=== PATIENT | male | born 1960 | race Caucasian/White ===

== ENCOUNTER → 2017-02-19 | Outpatient (CLI) | payer BC ==
[~2017-02-19] MED LIST: CHOL1000 PO; FLV1 PO; METH2.5T PO; NAPR-1169 PO; PANT40TA PO; SERT25TA PO
--- NOTE | 2017-02-19 10:14 | DIAGNOSTIC IMAGING REPORT ---
CT SCAN OF THE CHEST WITHOUT IV CONTRAST CLINICAL HISTORY: Follow-up pulmonary nodule. COMPARISON STUDY: Chest CT dated 09/04/2016. TECHNIQUE: CT scan of the thorax was performed from the thoracic inlet to the upper abdomen. Images are reviewed in the axial, sagittal, and coronal planes. IV contrast was not administered for this examination as per the referring clinician. CT DOSE: 411.54 mGy.cm FINDINGS: Thyroid: Imaged portions of the thyroid gland are normal in size and attenuation. Thoracic aorta: The thoracic aorta is normal in caliber and demonstrates standard 3-vessel arch anatomy. Heart: The heart is normal in size and without pericardial effusion. Lungs and pleural spaces: Mild emphysema is suspected. The trachea and central airways are clear. There are numerous (greater than 10) pulmonary cysts. The largest is present in the left lower lobe and measures 2.0 cm. No airspace consolidation or pleural effusion is seen. There is a 2.2 x 1.6 cm groundglass lesion in the left upper lobe seen on image #161, which is unchanged from 09/04/2016. An additional 11 mm nodule in the left upper lobe on image #169, a 6 mm groundglass nodule at the left apex seen on image #61, as well as a 9 mm irregular groundglass nodule in the right upper lobe on image #118 are also unchanged. Mediastinum: There is no mediastinal lymphadenopathy. Chante: Not well assessed without IV contrast. Axillae: There is no axillary lymphadenopathy. Upper abdomen: Cholecystectomy clips are noted. A 1.7 cm cyst arises from the upper pole of left kidney. Scattered diverticula are noted in the partially imaged left colon. Skeletal structures: No lytic or blastic bony lesions are seen. IMPRESSION: 1. Mild emphysema is suspected and there are numerous small pulmonary cysts. 2. There is unchanged appearance of a 2.2 cm groundglass lesion in the left upper lobe as compared to 09/04/2016. This should be considered low-grade neoplasm until proven otherwise and surgical consultation is advised. 3. There are 3 additional indeterminant nodules present in the upper lobes bilaterally as detailed above. These nodules should be followed as per the Fleischner criteria. See below. 4. There is no airspace consolidation or pleural effusion. 5. No mediastinal lymphadenopathy is seen. Please refer to below summary of Fleischner criteria recommendations for follow-up of incidental CT nodules (Laura James, Guidelines for management of small pulmonary nodules detected on CT scans: A statement from the Fleischner Society, Radiology 237: [phone].) SOLID NODULES Solitary nodule size: <6 mm * low risk patients: no follow-up needed * high risk patients: optional CT at 12 months Solitary nodule size: 6-8 mm * low risk patients: follow-up at 6-12 months, then consider further follow-up at 18-24 months * high risk patients: initial follow-up CT at 6-12 months and then at 18-24 months if no change Solitary nodule size: >8 mm * either low or high risk patients - consider follow-up CT at 3 months, and/or CT-PET, and/or biopsy Multiple nodules size: <6 mm * low risk patients: no routine follow-up * high risk patients: optional CT at 12 months Multiple nodules size: 6-8 mm * low risk patients: follow-up at 3-6 months, then consider further follow-up at 18-24 months * high risk patients: follow-up at 3-6 months, then at 18-24 months if no change Multiple nodules size: >8 mm * low risk patients: follow-up at 3-6 months, then consider further follow-up at 18-24 months * high risk patients: follow-up at 3-6 months, then at 18-24 months if no change Note: newly detected indeterminate nodule in persons 35 years of age or older. * low risk patients: minimal or absent history of smoking and/or other known risk factors * high risk patients: history of smoking or of other known risk factors (e.g. first degree relative with lung cancer, or exposure to asbestos, radon, uranium) * if a nodule up to 8 mm is partly solid or is ground glass further follow-up is required after 24 months to exclude possible slow growing adenocarcinoma (DARIEN) SUBSOLID NODULES Solitary pure ground-glass nodule * nodule size <6 mm - no CT follow-up required * nodule size >=6 mm - follow-up CT at 6-12 months, then every 2 years until 5 years Solitary part-solid nodule * nodule size <6 mm - no CT follow-up required * nodule size >=6 mm - follow-up CT at 3-6 months. If unchanged, and solid component remains <6 mm, then annual follow-up for 5 years Multiple subsolid nodules * nodule size <6 mm - follow-up CT at 3-6 months, consider further follow-up at 2 and 4 years if stable * nodule size >=6 mm - follow-up CT at 3-6 months, subsequent management based on the most suspicious nodule(s) Electronically signed by: Daren Escoto M.D. 02/19/2017 10:12 AM Dictated Date/Time: 02/19/2017 10:03 AM
== END | disposition home or self-care (01) ==
LOC: C.CTS 09:18
PROVIDERS: ATTEND Internal Medicine Pulmonary Disease
DX: R91.1 Solitary pulmonary nodule (principal); R91.8 Other nonspecific abnormal finding of lung field

== ENCOUNTER → 2017-03-09 | Outpatient (CLI) | payer BC ==
[2017-03-09 12:24] LABS: BASO % 0.3 %; BASO ABS # 0.02 K/uL (0-0.2); COMPLETE YES; EOS % 2.5 %; HEMATOCRIT 41.1 % (42-52); IG% 0.3 %; LYMPH % 33.1 %; LYMPH ABS # 2.35 K/uL (1.2-3.4); MEAN CELL VOLUME 87.8 fL (80-100); MEAN CORPUSCULAR HEMOGLOBIN 29.3 pg (25-34); MEAN CORPUSCULAR HGB CONC 33.3 g/dl (32-36); MEAN PLATELET VOLUME 9.6 fL (7.4-10.4); MONO % 9.1 %; NEUT % 54.7 %; PLATELET COUNT 236 K/uL (130-400); RED BLOOD COUNT 4.68 M/uL (4.7-6.1); WHITE BLOOD COUNT 7.11 K/uL (4.8-10.8)
[2017-03-09 12:38] LABS: ALT/SGPT 44 U/L (12-78)
[2017-03-09 12:42] LABS: ALKALINE PHOSPHATASE 73 U/L (45-117); AST/SGOT 24 U/L (15-37)
== END | disposition home or self-care (01) ==
LOC: C.LAB1850 09:38
PROVIDERS: ATTEND Internal Medicine Rheumatology
DX: M35.00 Sjogren syndrome, unspecified (principal); R76.8 Other specified abnormal immunological findings in serum; Z79.1 Long term (current) use of non-steroidal anti-inflammatories (NSAID); Z79.899 Other long term (current) drug therapy

== ENCOUNTER → 2017-04-07 | Day surgery (SDC) | payer BC ==
[2017-03-26 11:20] VITALS: BMI 27.0
--- NOTE | 2017-03-26 11:43 | PAT Medication Instructions ---
Service Date Mar 26, 2017. Current Home Medication List Cholecalciferol (Vitamin D3), 1 TAB PO QAM Folic Acid (Folic Acid), 1 TAB PO QAM Methotrexate (Methotrexate), 3 TABS PO thursday Naproxen (Naprosyn), 500 MG PO BID PRN for Pain Pantoprazole (Protonix), 40 MG PO QAM Sertraline (Zoloft), 25 MG PO HS Medication Instructions For Your Scheduled Surgery - Will be holding the week prior to surgery: Methotrexate (Methotrexate), 3 TABS PO thursday - Hold the following medications the morning of surgery: Cholecalciferol (Vitamin D3), 1 TAB PO QAM Folic Acid (Folic Acid), 1 TAB PO QAM Naproxen (Naprosyn), 500 MG PO BID PRN for Pain (otherwise okay to continue) - Take the following medications the morning of surgery with a sip of water OTHERWISE NOTHING TO EAT OR DRINK AFTER MIDNIGHT: Pantoprazole (Protonix), 40 MG PO QAM - Take the following medications as scheduled the night before surgery: Sertraline (Zoloft), 25 MG PO HS If you have any questions please call us at [phone] or [phone] or [phone]
[2017-03-26 12:21] LABS: BASO % 0.3 %; BASO ABS # 0.02 K/uL (0-0.2); COMPLETE YES; EOS % 1.6 %; HEMATOCRIT 43.3 % (42-52); IG% 0.3 %; LYMPH % 32.1 %; LYMPH ABS # 2.22 K/uL (1.2-3.4); MEAN CELL VOLUME 87.1 fL (80-100); MEAN CORPUSCULAR HEMOGLOBIN 28.2 pg (25-34); MEAN CORPUSCULAR HGB CONC 32.3 g/dl (32-36); MEAN PLATELET VOLUME 8.7 fL (7.4-10.4); MONO % 7.5 %; NEUT % 58.2 %; PLATELET COUNT 234 K/uL (130-400); RED BLOOD COUNT 4.97 M/uL (4.7-6.1); WHITE BLOOD COUNT 6.92 K/uL (4.8-10.8)
[2017-03-26 12:30] LABS: BUN/CREATININE RATIO 11.8 (10-20); CALCIUM 9.5 mg/dl (8.5-10.1); CREATININE 1.1 mg/dl (0.60-1.40); POTASSIUM 4.5 mmol/L (3.5-5.1)
[2017-03-26 12:35] LABS: PARTIAL THROMBOPLASTIN RATIO 1.1; PROTHROMBIN TIME (PATIENT) 10.4 SECONDS (9.0-12.0)
[~2017-04-07] VITALS: Ht 180.3 cm; Wt 87.5 kg
[~2017-04-07] MED LIST changes: +ATROPINE SULFATE 0.1 MG/ML 5ML SYR IV PRN; +CLINDAMYCIN PHOS 150 MG/ML 2 ML VIAL ONE; +DEXAMETHASONE SOD INJ 4 MG/ML VIAL ONE; +EpHEDrine SULFATE INJ 50 MG/ML AMP IV PRN; +FENTANYL CITRATE INJ 50 MCG/1 ML 2 ML VIAL IV PRN; +FENTANYL CITRATE INJ 50 MCG/1 ML 2 ML VIAL ONE; +GLYCOPYRROLATE INJ 0.2 MG/ML VIAL ONE; +LACTATED RINGER'S 1000ML 1,000 ML IV SCH; +LIDOCAINE HCL 2% 2 ML VIAL (20MG/ML) ONE; +MIDAZOLAM HCL 1 MG/ML 2ML VIAL ONE; +NEOSTIGMINE METHYLSULFATE 5 MG/5 ML SYR ONE; +NURSING VERBAL MED ORDER ONE; +ONDANSETRON INJ 2 MG/ML 2 ML VIAL IV PRN; +ONDANSETRON INJ 2 MG/ML 2 ML VIAL ONE; +PROMETHAZINE HCL INJ 12.5 MG in SODIUM CHLORIDE 0.9% 50ML 50 ML IV STA; +PROPOFOL IV EMULSION 10 MG/ML 20 ML VIAL IV ONE; +ROCURONIUM BROMIDE 10 MG/ML 5 ML VIAL ONE; +SCOPOLAMINE 1.5 MG TDSY TD ONE; +SUCCINYLCHOLINE CHLORIDE 20 MG/ML 10 ML VIAL IV ONE
[2017-04-07 10:06] VITALS: BP 152/89; PULSE 64; TEMP 36.6; O2SAT 99; Ht 180.3 cm; Wt 87.5 kg
[2017-04-07 15:05] VITALS: BP 135/79; PULSE 93; TEMP 37.1; O2SAT 94
--- NOTE | 2017-04-07 15:08 | Anesthesiology Progress Note ---
Anesthesia Post Op Note Date & Time Apr 07, 2017 at 14:57 Vital Signs Pain Intensity: 0 Vital Signs Past 12 Hours Date Time Temp Pulse Resp B/P (MAP) Pulse Ox O2 Delivery O2 Flow Rate FiO2 04/07/17 14:35 77 17 144/84 94 Room Air 04/07/17 14:25 79 12 148/88 95 Room Air 04/07/17 14:15 80 18 148/90 97 Room Air 04/07/17 14:05 75 20 149/94 97 Room Air 04/07/17 13:55 68 13 145/91 100 Oxymask 10 04/07/17 13:45 36.6 75 18 151/95 98 Oxymask 10 04/07/17 10:06 36.6 64 20 152/89 (110) 99 Room Air Notes Anesthetic Complications: The patient was induced and an igel #5 LMA was placed. Shortly after induction, Dr. Correa requested that we change to a # 8.5 ET tube and stated he saw gastric secretions in the bronchus intermedius, which he sucked out. We suctioned the patient and removed the LMA and intubated with the 8.5 ET tube and the patient's 02 saturations remained high throughout the case. Dr. Correa did not feel there was a significant aspiration but gave the patient a prophylactic dose of clindamycin. The patient's PACU stay was uneventful except for some nausea which was treated with phenergan 12.5 mg. He had been given zofran 8 mg and decadron 8 mg in addition to a scope patch previously.
[2017-04-07 15:35] VITALS: BP 124/76; PULSE 95; O2SAT 97
--- NOTE | 2017-04-07 15:51 | Discharge Instructions ---
Discharge Instructions Date of Service Apr 07, 2017. Admission Reason for Admission: Lung Nodule, Sjogren's Syndrome Discharge Discharge Diagnosis / Problem: Ground-glass nodule in the lingula Discharge Goals Goal(s): Diagnostic testing Activity Recommendations Activity Limitations: resume your previous activity . Instructions / Follow-Up Instructions / Follow-Up Follow-up with Dr. oCrrea and then Dr. Oneil of the Pulmonary Department Current Hospital Diet Patient's current hospital diet: Discharge Diet Recommended Diet: Regular Diet Procedures Procedures Performed: Flexible bronchoscopy, endobronchial ultrasound, electronavigational bronchoscopy, trans-tracheal/bronchial needle biopsy, trans-bronchial biopsy, bronchial lavage, intra-bronchial biopsy, cytology brushing Pending Studies Studies pending at discharge: no Medical Emergencies . Who to Call and When: Medical Emergencies: If at any time you feel your situation is an emergency, please call 911 immediately. . Non-Emergent Contact Non-Emergency issues call your: Environmental Technology Professor Call Non-Emergent contact if: temperature is above 101.5 . . "Provider Documentation" section prepared by Eugenio Correa. . VTE Core Measure Inpt VTE Proph given/why not?: Treatment not indicated
[2017-04-07 16:05] VITALS: BP 131/79; PULSE 94; TEMP 37.1; O2SAT 94
--- NOTE | 2017-04-07 17:42 | History and Physical ---
History & Physical Date Apr 07, 2017. Chief Complaint Ground Glass Nodule History of Present Illness The patient is a 56 year old male with complaints of GGO VEGA Patient is a 56-year-old male with a PmHx: of Sjogren's syndrome (MTX & Prednisone), GARRET and now GGO of the VEGA/Lingula. He has a cough chronically, notices some shortness of breath going up 1 flight of steps if he is carrying something but is able to run between 1 and 2 miles without too much difficulty. A CT scan of the chest done on February 19, 2017 demonstrated multiple thin walled cysts and a 2.2cm GGO in the VEGA. These findings are unchanged compared with a prior CT scan from 09/04/2016. The patient is doing well today with no fever, chills, productive cough, chest or pleurisy Past Medical/Surgical History 1. Abnormal SPEP 3. Epididymitis 4. Long-term use of immunosuppressant medication 5. Lung nodule 6. Nephrolithiasis 7. NSAID long-term use 8. Obstructive sleep apnea of adult 9. Pneumonitis 10. Sjogren's syndrome 11. Urinary symptom or sign 1. Appendectomy 2. Cholecystectomy Laparoscopic 3. Hernia Repair Additional History Hepatic Disease: No Endocrine Disorder: No Kidney Disease: No Hypertension: No Heart Disease: No Bleeding Tendencies: No Infectious Diseases: No Other: Sjogren syndrome Allergies Coded Allergies: Tamsulosin (Verified Allergy, Severe, DIFFICULTY BREATHING, 04/07/17) Home Medications Scheduled Cholecalciferol (Vitamin D3), 1 TAB PO QAM Folic Acid (Folic Acid), 1 TAB PO QAM Methotrexate (Methotrexate), 3 TABS PO thursday Pantoprazole (Protonix), 40 MG PO QAM Sertraline (Zoloft), 25 MG PO HS Scheduled PRN Naproxen (Naprosyn), 500 MG PO BID PRN for Pain Physical Examination Skin: warm/dry, no rash Eyes: normal inspection, EOMI, sclerae normal ENT: normal ENT inspection, pharynx normal Head: normocephalic, atraumatic Neck: supple, no adenopathy, trachea midline Respiratory/Chest: lungs clear, normal breath sounds, no respiratory distress Cardiovascular: regular rate, rhythm, no edema, no murmur Abdomen / GI: normal bowel sounds, non tender Back: normal inspection Extremities: normal inspection, normal range of motion Neurologic/Psych: no motor/sensory deficits, alert, normal reflexes, oriented x 3 Diagnosis VEGA GGO possible Lung CA ASA Classification: ASA Class II Plan of Treatment Flexible bronchoscopy with ENB, EBUS along with Tbbx, TTNA, TBNA, cytology brushing and BAL of the VEGA GGO
== END | disposition home or self-care (01) ==
LOC: C.ACU 09:27
PROVIDERS: ATTEND Internal Medicine Critical Care Medicine
DX: R91.1 Solitary pulmonary nodule (principal); J98.4 Other disorders of lung; M35.00 Sjogren syndrome, unspecified; G47.33 Obstructive sleep apnea (adult) (pediatric); Z90.49 Acquired absence of other specified parts of digestive tract; Z80.2 Family history of malignant neoplasm of other respiratory and intrathoracic organs; Z80.0 Family history of malignant neoplasm of digestive organs

== ENCOUNTER → 2017-04-07 | Outpatient (CLI) | payer BC ==
[~2017-04-07] MED LIST changes: -ATROPINE SULFATE 0.1 MG/ML 5ML SYR IV PRN; -CLINDAMYCIN PHOS 150 MG/ML 2 ML VIAL ONE; -DEXAMETHASONE SOD INJ 4 MG/ML VIAL ONE; -EpHEDrine SULFATE INJ 50 MG/ML AMP IV PRN; -FENTANYL CITRATE INJ 50 MCG/1 ML 2 ML VIAL IV PRN; -FENTANYL CITRATE INJ 50 MCG/1 ML 2 ML VIAL ONE; -GLYCOPYRROLATE INJ 0.2 MG/ML VIAL ONE; -LACTATED RINGER'S 1000ML 1,000 ML IV SCH; -LIDOCAINE HCL 2% 2 ML VIAL (20MG/ML) ONE; -MIDAZOLAM HCL 1 MG/ML 2ML VIAL ONE; -NEOSTIGMINE METHYLSULFATE 5 MG/5 ML SYR ONE; -NURSING VERBAL MED ORDER ONE; -ONDANSETRON INJ 2 MG/ML 2 ML VIAL IV PRN; -ONDANSETRON INJ 2 MG/ML 2 ML VIAL ONE; -PROMETHAZINE HCL INJ 12.5 MG in SODIUM CHLORIDE 0.9% 50ML 50 ML IV STA; -PROPOFOL IV EMULSION 10 MG/ML 20 ML VIAL IV ONE; -ROCURONIUM BROMIDE 10 MG/ML 5 ML VIAL ONE; -SCOPOLAMINE 1.5 MG TDSY TD ONE; -SUCCINYLCHOLINE CHLORIDE 20 MG/ML 10 ML VIAL IV ONE
--- NOTE | 2017-04-07 10:03 | DIAGNOSTIC IMAGING REPORT ---
ADDENDUM This study was a diagnostic CT of the chest without IV contrast. No intervention or needle placement by the interpreting radiologist was conducted and should be coded appropriately. Electronically signed by: Garett Pichardo M.D. 04/08/2017 1:06 PM Dictated Date/Time: 04/08/2017 1:05 PM ORIGINAL REPORT GUIDANCE NEEDLE PLACEMENT HISTORY: 56 years Male lung nodule with super-dimensional protocol for bronchoscopy guided needle biopsy COMPARISON: Chest CT 02/19/2017 and 09/04/2016 TECHNIQUE: Multiple axial CT images of the chest were obtained without IV contrast for evaluation of superior segment lingula groundglass opacity to plan for bronchoscopically guided needle biopsy. FINDINGS: Thyroid is homogeneous. No pathologic adenopathy of the chest. The heart appears normal in size. The thoracic aorta is normal in course and caliber. No pneumothorax or pleural effusion. There is mild centrilobular emphysematous changes again seen with scattered thin-walled pulmonary cyst. Subsegmental atelectasis involves the lung bases. 2.2 x 1.5 cm ovoid focal groundglass opacity of the superior segment lingula is again seen with central coursing air bronchograms, previously 2.1 x 1.5 cm on study dated 02/19/2017. 11 x 6 mm noncalcified pulmonary nodule of the superior segment lingula more anteriorly appears unchanged from 09/04/2016. No new pulmonary nodules are identified. The central airways are patent with mild endobronchial mucous noted. 3 mm pulmonary nodule of the apical posterior segment left upper lobe appears unchanged. 5 mm linear density of the apical segment right upper lobe appears unchanged suggesting area of scarring. Prior cholecystectomy. Exophytic slightly low attenuating 1.9 x 1.5 similar lesion of the superior pole left kidney is again seen which may reflect a cyst. Soft tissues are unremarkable. The bones appear intact. IMPRESSION: 1. Unchanged focal groundglass opacity of the superior segment lingula is again seen measuring up to 2.2 cm. 2. Additional scattered areas of pulmonary nodularity as above. 3. No acute cardiopulmonary process. Please refer to below summary of Fleischner criteria recommendations for follow-up of incidental CT nodules (H Jacob, Guidelines for management of small pulmonary nodules detected on CT scans: A statement from the Fleischner Society, Radiology 237: [phone].) SOLID NODULES Solitary nodule size: <6 mm * Low risk patients: no follow-up needed * high risk patients: optional CT at 12 months Solitary nodule size: 6-8 mm * Low risk patients: follow-up at 6-12 months, then consider further follow-up at 18-24 months * high risk patients: initial follow-up CT at 6-12 months and then at 18-24 months if no change Solitary nodule size: >8 mm * either low or high risk patients - consider follow-up CT at 3 months, and/or CT-PET, and/or biopsy Multiple nodules size: <6 mm * Low risk patients: no routine follow-up * high risk patients: optional CT at 12 months Multiple nodules size: 6-8 mm * Low risk patients: follow-up at 3-6 months, then consider further follow-up at 18-24 months * high risk patients: follow-up at 3-6 months, then at 18-24 months if no change Multiple nodules size: >8 mm * Low risk patients: follow-up at 3-6 months, then consider further follow-up at 18-24 months * high risk patients: follow-up at 3-6 months, then at 18-24 months if no change Note: newly detected indeterminate nodule in persons 35 years of age or older. * Low risk patients: minimal or absent history of smoking and/or other known risk factors * high risk patients: history of smoking or of other known risk factors (e.g. first degree relative with lung cancer, or exposure to asbestos, radon, uranium) * if a nodule up to 8 mm is partly solid or is ground glass further follow-up is required after 24 months to exclude possible slow growing adenocarcinoma (DARIEN) SUBSOLID NODULES Solitary pure ground-glass nodule * nodule size <6 mm - no CT follow-up required * nodule size >=6 mm - follow-up CT at 6-12 months, then every 2 years until 5 years Solitary part-solid nodule * nodule size <6 mm - no CT follow-up required * nodule size >=6 mm - follow-up CT at 3-6 months. If unchanged, and solid component remains <6 mm, then annual follow-up for 5 years Multiple subsolid nodules * nodule size <6 mm - follow-up CT at 3-6 months, consider further follow-up at 2 and 4 years if stable * nodule size >=6 mm - follow-up CT at 3-6 months, subsequent management based on the most suspicious nodule(s) The above report was generated using voice recognition software. It may contain grammatical, syntax or spelling errors. Electronically signed by: Garett Pichardo M.D. 04/07/2017 10:01 AM Dictated Date/Time: 04/07/2017 9:52 AM
--- NOTE | 2017-04-07 10:47 | History & Physical Bridge Note ---
H&P Re-Evaluation Bridge Note: I have examined the patient, reviewed the History & Physical and in the interval since the performance of the History & Physical I have noted the following changes of clinical significance: No changes noted
--- NOTE | 2017-04-07 10:47 | History and Physical ---
History & Physical Date Apr 07, 2017. Chief Complaint Ground Glass Nodule History of Present Illness The patient is a 56 year old male with complaints of GGO VEGA Patient is a 56-year-old male with a PmHx: of Sjogren's syndrome (MTX & Prednisone), GARRET and now GGO of the VEGA/Lingula. He has a cough chronically, notices some shortness of breath going up 1 flight of steps if he is carrying something but is able to run between 1 and 2 miles without too much difficulty. A CT scan of the chest done on February 19, 2017 demonstrated multiple thin walled cysts and a 2.2cm GGO in the VEGA. These findings are unchanged compared with a prior CT scan from 09/04/2016. The patient is doing well today with no fever, chills, productive cough, chest or pleurisy Past Medical/Surgical History 1. Abnormal SPEP 3. Epididymitis 4. Long-term use of immunosuppressant medication 5. Lung nodule 6. Nephrolithiasis 7. NSAID long-term use 8. Obstructive sleep apnea of adult 9. Pneumonitis 10. Sjogren's syndrome 11. Urinary symptom or sign 1. Appendectomy 2. Cholecystectomy Laparoscopic 3. Hernia Repair Allergies Coded Allergies: Tamsulosin (Verified Allergy, Severe, DIFFICULTY BREATHING, 04/07/17) Home Medications Scheduled Cholecalciferol (Vitamin D3), 1 TAB PO QAM Folic Acid (Folic Acid), 1 TAB PO QAM Methotrexate (Methotrexate), 3 TABS PO thursday Pantoprazole (Protonix), 40 MG PO QAM Sertraline (Zoloft), 25 MG PO HS Scheduled PRN Naproxen (Naprosyn), 500 MG PO BID PRN for Pain Physical Examination Skin: warm/dry, no rash Eyes: normal inspection, EOMI, sclerae normal ENT: normal ENT inspection, pharynx normal Head: normocephalic, atraumatic Neck: supple, no adenopathy, trachea midline Respiratory/Chest: lungs clear, normal breath sounds, no respiratory distress Cardiovascular: regular rate, rhythm, no edema, no murmur Abdomen / GI: normal bowel sounds, non tender Back: normal inspection Extremities: normal inspection, normal range of motion Neurologic/Psych: no motor/sensory deficits, alert, normal reflexes, oriented x 3 Diagnosis VEGA GGO possible Lung CA ASA Classification: ASA Class II Plan of Treatment Flexible bronchoscopy with ENB, EBUS along with Tbbx, TTNA, TBNA, cytology brushing and BAL of the VEGA GGO
--- NOTE | 2017-04-07 13:34 | Discharge Instructions ---
Discharge Instructions Date of Service Apr 07, 2017. Admission Reason for Admission: Lung Nodule Discharge Discharge Diagnosis / Problem: groundglass nodule Discharge Goals Goal(s): Diagnostic testing Activity Recommendations Activity Limitations: resume your previous activity . Instructions / Follow-Up Instructions / Follow-Up Follow-up in in the next 7-[address] Correa Current [facility] Diet Patient's current hospital diet: Discharge Diet Recommended Diet: Regular Diet Procedures Procedures Performed: Bronchoscopy, electrodesiccation guidance, ultrasound guidance, transbronchial biopsy, bronchial lavage, trans-bronchial forcep biopsy Pending Studies Studies pending at discharge: yes List of pending studies: Chest x-ray Medical Emergencies . Who to Call and When: Medical Emergencies: If at any time you feel your situation is an emergency, please call 911 immediately. . Non-Emergent Contact Non-Emergency issues call your: Custom Bike Builder Call Non-Emergent contact if: temperature is above 101.5 . . "Provider Documentation" section prepared by Eugenio Correa. . VTE Core Measure Inpt VTE Proph given/why not?: Treatment not indicated
--- NOTE | 2017-04-07 13:38 | Bronchoscopy Procedure Note ---
Bronchoscopy Procedure Note Procedure: Flexible-Bronchoscopy, EBUS, Tbbx, navigational bronchoscopy, bronchial lavage, cytology brushing and transbronchial needle aspiration Consent: Obtained through the patient placed into the chart Preprocedural diagnosis: Lingular groundglass nodule Postprocedural diagnosis: Groundglass nodule Analgesia: GETA Sedation: GETA Procedure: The Olympus video bronchoscope and EBUS scope were used for this procedure Initially the flexible bronchoscope was used for evaluation of the airways. The ET tube was notably 4 cm above the level of the michelle. Trachea: Visualized portion of the trachea was anatomically within normal limits Michelle: Anatomically within normal limits Right bronchial tree: Right mainstem bronchus: Anatomically within normal limits Right upper lobe: Anatomically within normal limits Bronchus intermedius: Anatomically within normal limits Right middle lobe: Anatomically within normal limits Right lower lobe: Anatomically within normal limits Findings: Some mild gastric secretions were noted in the dependent region of the right bronchial tree Left bronchial tree: Left mainstem bronchus: Anatomically within normal limits Left upper lobe: Anatomically within normal limits Lingula: Anatomically within normal limits Left lower lobe: Anatomically within normal limits Findings: No significant findings noted EBUS/TAURUS: TBNA Raquel Stations: 7: # of passes 5 Electrodesiccation bronchoscopy(left upper lobe lingular nodule) 5 transient bronchial forcep biopsies 2 needle brush biopsies 2 bronchial lavage Complications: Aspiration into the right bronchial tree Patient was initially given ampicillin and clindamycin in the OR will be followed up with a 10 day course of Augmentin Follow-up: Pulmonary clinic
--- NOTE | 2017-04-07 14:09 | DIAGNOSTIC IMAGING REPORT ---
CHEST ONE VIEW PORTABLE CLINICAL HISTORY: POST TRANSBRONCHIAL BIOPSIES COMPARISON STUDY: None FINDINGS: No evidence pneumothorax thorax post bronchoscopy IMPRESSION: No evidence pneumothorax status post bronchoscopy The above report was generated using voice recognition software. It may contain grammatical, syntax or spelling errors. Electronically signed by: Brett Santacruz M.D. 04/07/2017 2:08 PM Dictated Date/Time: 04/07/2017 2:07 PM
--- NOTE | 2017-04-07 14:44 | Discharge Instructions ---
Discharge Instructions Date of Service Apr 07, 2017. Admission Reason for Admission: Lung Nodule Discharge Discharge Diagnosis / Problem: Ground-glass nodule of the left upper lobe Discharge Goals Goal(s): Diagnostic testing Activity Recommendations Activity Limitations: resume your previous activity . Instructions / Follow-Up Instructions / Follow-Up Follow-up with Dr. Correa for the post bronchoscopic interview then Dr. Oneil for final analysis. Current Hospital Diet Patient's current hospital diet: Discharge Diet Recommended Diet: Regular Diet Procedures Procedures Performed: Bronchoscopy, electrodesiccation guidance, ultrasound guidance, transbronchial biopsy, bronchial lavage, trans-bronchial forcep biopsy Pending Studies Studies pending at discharge: no Medical Emergencies . Who to Call and When: Medical Emergencies: If at any time you feel your situation is an emergency, please call 911 immediately. . Non-Emergent Contact Non-Emergency issues call your: Rock Singer Call Non-Emergent contact if: temperature is above 101.5 . . "Provider Documentation" section prepared by Eugenio Correa. . VTE Core Measure Inpt VTE Proph given/why not?: Treatment not indicated
== END | disposition home or self-care (01) ==
LOC: C.CTS 09:25
PROVIDERS: ATTEND Internal Medicine Critical Care Medicine
DX: R91.1 Solitary pulmonary nodule (principal)

== ENCOUNTER → 2017-06-02 | Outpatient (CLI) | payer BC ==
[2017-06-02 12:09] LABS: BASO % 0.2 %; BASO ABS # 0.01 K/uL (0-0.2); COMPLETE YES; EOS % 1.8 %; HEMATOCRIT 41.1 % (42-52); IG% 0.2 %; LYMPH % 27.3 %; LYMPH ABS # 1.64 K/uL (1.2-3.4); MEAN CELL VOLUME 89.2 fL (80-100); MEAN CORPUSCULAR HEMOGLOBIN 29.5 pg (25-34); MEAN CORPUSCULAR HGB CONC 33.1 g/dl (32-36); MEAN PLATELET VOLUME 9.7 fL (7.4-10.4); NEUT % 62.5 %; PLATELET COUNT 222 K/uL (130-400); RED BLOOD COUNT 4.61 M/uL (4.7-6.1); WHITE BLOOD COUNT 6.01 K/uL (4.8-10.8)
[2017-06-02 12:19] LABS: ALT/SGPT 51 U/L (12-78); AST/SGOT 34 U/L (15-37)
[2017-06-02 12:21] LABS: ALKALINE PHOSPHATASE 75 U/L (45-117)
[2017-06-07 02:23] LABS: ANTI-CENTROMERE AB <1.0 NEG AI (<1.0 NEG); ANTI-SS-A >8.0 POS AI (<1.0 NEG); ANTI-SS-B >8.0 POS AI (<1.0 NEG); DNA ds CRITHIDIA POSITIVE (NEGATIVE); Sm Antibody <1.0 NEG AI (<1.0 NEG)
== END | disposition home or self-care (01) ==
LOC: C.LAB1850 09:53
PROVIDERS: ATTEND Internal Medicine Rheumatology
DX: M35.00 Sjogren syndrome, unspecified (principal); R76.8 Other specified abnormal immunological findings in serum; Z79.899 Other long term (current) drug therapy; Z79.1 Long term (current) use of non-steroidal anti-inflammatories (NSAID); M05.741 Rheumatoid arthritis with rheumatoid factor of right hand without organ or systems involvement

== ENCOUNTER → 2017-06-08 | Outpatient (CLI) | payer BC ==
--- NOTE | 2017-06-08 09:12 | DIAGNOSTIC IMAGING REPORT ---
CHEST 2 VIEWS ROUTINE CLINICAL HISTORY: Cough. COMPARISON STUDY: Chest CT and chest radiograph April 07, 2017. FINDINGS: Lung volumes are normal. There is no pneumothorax or pleural effusion. Linear left basilar opacity is suggestive of atelectasis. A possible nodular density lateral to the left hilum could correspond to the lingular groundglass nodule shown on CT of April 07, 2017. There is no consolidation to suggest pneumonia and there is no evidence of pulmonary edema. IMPRESSION: 1. No acute cardiopulmonary findings. 2. Nodular density lateral to the left hilum which could reflect the suspicious lingular groundglass nodule shown on CT of April 07, 2017. Electronically signed by: Dean Street M.D. 06/08/2017 9:10 AM Dictated Date/Time: 06/08/2017 9:05 AM
== END | disposition home or self-care (01) ==
LOC: C.RAD1850 08:48
PROVIDERS: ATTEND Internal Medicine Pulmonary Disease
DX: R05 Cough (principal)

== ENCOUNTER → 2017-10-20 | Outpatient (CLI) | payer BC ==
--- NOTE | 2017-10-28 08:00 | Sleep Study ---
Sleep Study Report Date of Service: 10/20/2017 Sleep Study Report CLINICAL DATA: The patient is a 56-year-old male with a history of snoring, observed apneas, and daytime tiredness. His [place] Sleepiness Scale score is 7. His BMI is 26.9. On the evening of 10/20/2017 a home sleep apnea test was performed using a [employer] type 3 monitor. RECORDING RESULTS: Total recording time was 10 hours. Patient estimated sleep time was 7.2 hours. RESPIRATORY DATA: The patient had a total of 162 respiratory events including 41 obstructive apneas, 38 mixed apneas, 11 central apneas, and 72 hypopneas. Hypopneas were scored according to the 4 percent desaturation rule. The maximum respiratory event was 42 seconds. The patient had an MILANA of 22.7 events per hour. This reflects moderate obstructive sleep apnea. OXIMETRY DATA: The mean saturation for the night was 92 percent. The minimum saturation was 81 percent. There was an estimated 23 minutes with saturations less than 89 percent. HEART RATE DATA: The minimum heart rate for the night was 54 beats per minute. The mean heart rate was 65 beats per minute. SNORING DATA: Snoring was present throughout the test. IMPRESSIONS: 1. Moderate obstructive sleep apnea RECOMMENDATIONS: 1. It is advised that the patient be treated with nasal CPAP. The alternatives would be to have an in-lab CPAP titration or treatment with an auto CPAP. 2. The patient should be advised to avoid sleeping in the supine position. Copies To 1: Rico Oneil DO; Elvis Pandya D.O.
== END | disposition home or self-care (01) ==
LOC: C.NEUR 09:03
PROVIDERS: ATTEND Internal Medicine Pulmonary Disease
DX: G47.33 Obstructive sleep apnea (adult) (pediatric) (principal)

== ENCOUNTER → 2017-12-17 | Outpatient (CLI) | payer BC ==
[2017-12-17 13:21] LABS: BASO % 0.1 %; BASO ABS # 0.01 K/uL (0-0.2); EOS ABS # 0.08 K/uL (0-0.5); HEMATOCRIT 39.9 % (42-52); HEMOGLOBIN 13.5 g/dL (14.0-18.0); IG# 0.02 K/uL (0.00-0.02); LYMPH % 18.6 %; MEAN CELL VOLUME 90.1 fL (80-100); MEAN CORPUSCULAR HEMOGLOBIN 30.5 pg (25-34); MEAN CORPUSCULAR HGB CONC 33.8 g/dl (32-36); MEAN PLATELET VOLUME 9.3 fL (7.4-10.4); MONO % 5.2 %; MONO ABS # 0.42 K/uL (0.11-0.59); NEUT % 74.9 %; NEUT ABS # 6.02 K/uL (1.4-6.5); PLATELET COUNT 255 K/uL (130-400); RED CELL DISTRIBUTION WIDTH CV 14.3 % (11.5-14.5); RED CELL DISTRIBUTION WIDTH SD 46.9 fL (36.4-46.3); WHITE BLOOD COUNT 8.05 K/uL (4.8-10.8)
[2017-12-17 15:01] LABS: ALBUMIN 4.2 gm/dl (3.4-5.0); ALT/SGPT 46 U/L (12-78); CREATININE 1.02 mg/dl (0.60-1.40)
[2017-12-17 15:04] LABS: ALKALINE PHOSPHATASE 75 U/L (45-117); AST/SGOT 20 U/L (15-37)
== END | disposition home or self-care (01) ==
LOC: C.LAB1850 10:52
PROVIDERS: ATTEND Internal Medicine Rheumatology
DX: R20.0 Anesthesia of skin (principal)

== ENCOUNTER → 2017-12-22 | Outpatient (CLI) | payer BC ==
--- NOTE | 2017-12-22 11:37 | DIAGNOSTIC IMAGING REPORT ---
LEFT SHOULDER 3 VIEWS CLINICAL HISTORY: Bilateral shoulder pain. FINDINGS: 3 views of the left shoulder are obtained. Correlation is made with chest CT dated 09/04/2016.. The skeletal structures are well mineralized. No fracture or dislocation is identified. The glenohumeral and acromioclavicular joint are well-maintained. Mild curvature of the clavicle may be developmental or related to remote trauma. This is unchanged appearance dating back to [address] The overlying soft tissues are within normal limits. The imaged left lung parenchyma appears clear. IMPRESSION: There is no radiographic evidence of left shoulder fracture or dislocation. Electronically signed by: Daren Escoto M.D. 12/22/2017 11:35 AM Dictated Date/Time: 12/22/2017 11:32 AM
--- NOTE | 2017-12-22 11:43 | DIAGNOSTIC IMAGING REPORT ---
R SHOULDER MIN 2 VIEWS ROUTINE CLINICAL HISTORY: 57 years-old Male presenting with Bilateral shoulder pain in both shoulders. TECHNIQUE: Internal rotation, external rotation, Grashey views of the right shoulder were obtained. COMPARISON: Chest x-ray from 06/08/2017. FINDINGS: Glenohumeral and acromioclavicular joints congruent. No acute fracture or malalignment. No advanced degenerative change. No radiographic soft tissue abnormality. IMPRESSION: No acute osseous injury. Electronically signed by: Kane Mcpherson M.D. 12/22/2017 11:42 AM Dictated Date/Time: 12/22/2017 11:41 AM
== END | disposition home or self-care (01) ==
LOC: C.RAD1850 11:12
PROVIDERS: ATTEND Internal Medicine Rheumatology
DX: M25.511 Pain in right shoulder (principal); M25.512 Pain in left shoulder; Z79.899 Other long term (current) drug therapy; M05.741 Rheumatoid arthritis with rheumatoid factor of right hand without organ or systems involvement; M05.742 Rheumatoid arthritis with rheumatoid factor of left hand without organ or systems involvement; M35.00 Sjogren syndrome, unspecified

== ENCOUNTER → 2018-01-27 | Outpatient (CLI) | payer BC ==
--- NOTE | 2018-01-27 08:37 | DIAGNOSTIC IMAGING REPORT ---
(CHEST) THORAX WITHOUT CT DOSE: 627.21 mGycm HISTORY: Lung nodule. Follow-up. TECHNIQUE: Multiaxial CT images of the chest were performed without contrast. A dose lowering technique was utilized adhering to the principles of ALARA. COMPARISON: Chest CT 02/19/2017. FINDINGS: There is again noted a 2.2 x 1.6 cm groundglass nodule within the left upper lobe on image 155. This remains unchanged. Again, the appearance is highly suspicious for a low-grade neoplasm. An 11 x 8 mm nodule within the left upper lobe anteriorly on image 158 has slightly increased in size. This previous measured 11 x 6 mm. No pneumothorax. No pleural effusions. The central airways are patent. Multiple scattered pulmonary cysts are again noted. The largest in the left lower lobe measures 2 cm. A stable 4 mm groundglass nodule within the left lung apex on image 60. There are few tiny right apical nodules measuring up to 3 mm which are also unchanged. Stable 3 mm nodule within the right middle lobe on image 171. Mild dependent changes at the lung bases. Stable 3 mm subpleural nodule within the right lower lobe on image 223. There is a new 6 mm nodule within the right lower lobe in image 222. Stable subtle irregular groundglass nodule in image 111 within the right upper lobe. No suspicious lytic or blastic osseous lesions. No mediastinal or hilar lymphadenopathy. The visualized liver and spleen are unremarkable. Cholecystectomy. A 1.7 cm exophytic hypodense lesion within the upper pole the left kidney. This favors a cyst. This remains unchanged. The heart is normal in size. Normal caliber thoracic aorta. IMPRESSION: 1. Multiple bilateral pulmonary nodules are again noted. Dominant 2.2 x 1.6 cm groundglass nodule within the left upper lobe remains highly suspicious for a low-grade neoplasm such as an adenocarcinoma in situ. Surgical consultation recommended. 2. Slight increase in size in the 11 x 8 mm nodule within the left upper lobe. 3. There is a new indeterminate 6 mm nodule within the right lower lobe. Continued follow up as recommended below. 4. These findings were called/faxed to the referring physician's office following dictation. Please refer to below summary of Fleischner criteria recommendations for follow-up of incidental CT nodules (Laura James, Guidelines for management of small pulmonary nodules detected on CT scans: A statement from the Fleischner Society, Radiology 237: [phone].) SOLID NODULES Solitary nodule size: <6 mm * Low risk patients: no follow-up needed * high risk patients: optional CT at 12 months Solitary nodule size: 6-8 mm * Low risk patients: follow-up at 6-12 months, then consider further follow-up at 18-24 months * high risk patients: initial follow-up CT at 6-12 months and then at 18-24 months if no change Solitary nodule size: >8 mm * either low or high risk patients - consider follow-up CT at 3 months, and/or CT-PET, and/or biopsy Multiple nodules size: <6 mm * Low risk patients: no routine follow-up * high risk patients: optional CT at 12 months Multiple nodules size: 6-8 mm * Low risk patients: follow-up at 3-6 months, then consider further follow-up at 18-24 months * high risk patients: follow-up at 3-6 months, then at 18-24 months if no change Multiple nodules size: >8 mm * Low risk patients: follow-up at 3-6 months, then consider further follow-up at 18-24 months * high risk patients: follow-up at 3-6 months, then at 18-24 months if no change Note: newly detected indeterminate nodule in persons 35 years of age or older. * Low risk patients: minimal or absent history of smoking and/or other known risk factors * high risk patients: history of smoking or of other known risk factors (e.g. first degree relative with lung cancer, or exposure to asbestos, radon, uranium) * if a nodule up to 8 mm is partly solid or is ground glass further follow-up is required after 24 months to exclude possible slow growing adenocarcinoma (DARIEN) SUBSOLID NODULES Solitary pure ground-glass nodule * nodule size <6 mm - no CT follow-up required * nodule size >=6 mm - follow-up CT at 6-12 months, then every 2 years until 5 years Solitary part-solid nodule * nodule size <6 mm - no CT follow-up required * nodule size >=6 mm - follow-up CT at 3-6 months. If unchanged, and solid component remains <6 mm, then annual follow-up for 5 years Multiple subsolid nodules * nodule size <6 mm - follow-up CT at 3-6 months, consider further follow-up at 2 and 4 years if stable * nodule size >=6 mm - follow-up CT at 3-6 months, subsequent management based on the most suspicious nodule(s) Electronically signed by: Vivek Nogueira M.D. 01/27/2018 8:36 AM Dictated Date/Time: 01/27/2018 8:23 AM
== END | disposition home or self-care (01) ==
LOC: C.CTS 07:59
PROVIDERS: ATTEND Internal Medicine Pulmonary Disease
DX: R91.8 Other nonspecific abnormal finding of lung field (principal)

== ENCOUNTER → 2018-05-06 | Outpatient (CLI) | payer BC ==
[~2018-05-06] MED LIST changes: -NAPR-1169 PO; +NAPR-22 PO
[2018-05-06 13:38] LABS: BASO % 0.3 %; BASO ABS # 0.02 K/uL (0-0.2); EOS ABS # 0.32 K/uL (0-0.5); HEMATOCRIT 40.7 % (42-52); HEMOGLOBIN 13.4 g/dL (14.0-18.0); IG# 0.01 K/uL (0.00-0.02); LYMPH % 24.2 %; LYMPH ABS # 1.56 K/uL (1.2-3.4); MEAN CELL VOLUME 92.7 fL (80-100); MEAN CORPUSCULAR HEMOGLOBIN 30.5 pg (25-34); MEAN CORPUSCULAR HGB CONC 32.9 g/dl (32-36); MEAN PLATELET VOLUME 10.1 fL (7.4-10.4); MONO % 8.7 %; MONO ABS # 0.56 K/uL (0.11-0.59); NEUT % 61.6 %; NEUT ABS # 3.97 K/uL (1.4-6.5); PLATELET COUNT 247 K/uL (130-400); RED CELL DISTRIBUTION WIDTH CV 14.1 % (11.5-14.5); RED CELL DISTRIBUTION WIDTH SD 47.3 fL (36.4-46.3); WHITE BLOOD COUNT 6.44 K/uL (4.8-10.8)
[2018-05-06 13:44] LABS: ALT/SGPT 39 U/L (12-78); AST/SGOT 26 U/L (15-37); CREATININE 1.12 mg/dl (0.60-1.40)
== END | disposition home or self-care (01) ==
LOC: C.LABPBG 08:22
PROVIDERS: ATTEND Internal Medicine Rheumatology
DX: M35.00 Sjogren syndrome, unspecified (principal); Z79.1 Long term (current) use of non-steroidal anti-inflammatories (NSAID); Z79.899 Other long term (current) drug therapy

== ENCOUNTER → 2018-05-12 | Outpatient (CLI) | payer BC ==
[2018-05-17 06:34] LABS: PARVOVIRUS IgM INDEX 0.1 (<0.9)
== END | disposition home or self-care (01) ==
LOC: C.LAB1850 12:11
PROVIDERS: ATTEND Internal Medicine Rheumatology
DX: M35.00 Sjogren syndrome, unspecified (principal); Z79.1 Long term (current) use of non-steroidal anti-inflammatories (NSAID); Z79.899 Other long term (current) drug therapy; M05.741 Rheumatoid arthritis with rheumatoid factor of right hand without organ or systems involvement; M05.742 Rheumatoid arthritis with rheumatoid factor of left hand without organ or systems involvement

== ENCOUNTER 2019-01-05 06:01 | Inpatient (IN) ==
--- NOTE | 2018-12-30 13:52 | Anesthesiology Consultation ---
Date of Service December 30, 2018 Assessment & Plan (1) Encounter for pre-operative examination: - S/P Navigational bronchoscopy, EBUS with biopsies: 11/19/18: Grade view 1, MAC 3, ETT 8.5 at [facility] (pt was classified as ASA 2 by anesthesia evaluation at time of this surgery). - Discussed case with Dr. Jeff, acceptable risk to proceed with surgery. Chart Review Chart Review: Acceptable Risk for Surgery (pending evaluation of clinical status AM DOS) and Patient NOT seen in Pre Admission Testing History Surgery Operation Date: 01/05/19 12:00 Proposed Procedures p Navigational Bronchoscopy with ICG Marking, - Rico Calloway MD, FACS s Robotic Left Video Assisted Thoracoscopy with Lingulectomy - Rico Calloway MD, FACS Height/Weight Height: 5 ft 11 in Weight: 81.647 kg Allergies Allergy/AdvReac Type Severity Reaction Status Date / Time tamsulosin Allergy Severe DIFFICULTY Verified 12/27/18 16:07 BREATHING Medications Home Medications Medication Instructions Recorded Confirmed Last Taken acetaminophen 2 tab PO Q6H PRN 11/15/18 12/27/18 11/18/18 12:00 cholecalciferol (vitamin D3) 1,000 unit PO QAM 11/15/18 12/27/18 11/13/18 08:00 [Vitamin D3] naproxen 500 mg PO QAM 11/15/18 12/27/18 11/13/18 08:00 pantoprazole [Protonix] 40 mg PO QAM 11/15/18 12/27/18 11/19/18 06:30 prednisone 20 mg PO UD PRN 11/15/18 12/27/18 Unknown turmeric 1 cap PO QAM 11/15/18 12/27/18 11/13/18 08:00 Past Medical History Medical History Anxiety Depression Fatty liver GERD (gastroesophageal reflux disease) Hyperlipidemia HX Migraine Rheumatoid arthritis Sjogrens syndrome Sleep apnea NO DEVICE Past Surgical History Surgical History History of appendectomy History of bronchoscopy LUNG BIOPSY History of cholecystectomy History of colonoscopy History of esophagogastroduodenoscopy (EGD) History of herniorrhaphy INGUINAL History of lung biopsy History of open reduction and internal fixation (ORIF) procedure RT ANKLE (HARDWARE INTACT) History of tooth extraction Nausea and vomiting after administration of anesthetic agent Social History Smoking Status: Never smoker Do You Dip or Chew Tobacco: No Hx Alcohol Use: No Hx Substance Use: No substance use type: does not use Testing Electrocardiogram Date: 11/11/18 SR at 78bpm. PRWP. NS ST/TWA. Chest X-Ray Date: 11/19/18 There is no evidence of pneumothorax status post bronchoscopy. There are prominent basilar markings, likely representing post procedural atelectasis. Aspiration or infectious/inflammatory process could appear similar. There are no significant pleural effusions. No evidence of pneumothorax status post bronchoscopy Laboratory Results 11/11/18 WBC 7.88 H/H 12.5/39.1 PLATELETS 281 SODIUM 141 POTASSIUM 3.6 CHLORIDE 107 CO2 25 BUN 17.5 CREATININE 1.12 GLUCOSE 125
[~2019-01-05 06:01] MED LIST changes: -CHOL1000 PO; -FLV1 PO; +LR 15ML/HR IV SCH; -METH2.5T PO; -NAPR-22 PO; -PANT40TA PO; -SERT25TA PO
[2019-01-05] MEDS ORDERED: MIDAZOLAM HCL 1 MG/ML 2ML VIAL ONE (06:46)
[2019-01-05] MEDS ORDERED: ONDANSETRON INJ 2 MG/ML 2 ML VIAL ONE ×2 (06:46→07:27)
[2019-01-05] MEDS ORDERED: LIDOCAINE HCL 2% 2 ML VIAL/AMP(20MG/ML) INFIL ONE (06:46)
[2019-01-05] MEDS ORDERED: ROCURONIUM BROMIDE 10 MG/ML 5 ML VIAL ONE (06:46)
[2019-01-05] MEDS ORDERED: PROPOFOL IV EMULSION 10 MG/ML 20 ML VIAL IV ONE (06:46)
[2019-01-05] MEDS ORDERED: fentaNYL citrate 100 MCG/2 ML VIAL ONE ×2 (06:46→08:45)
--- NOTE | 2019-01-05 06:51 | History & Physical Bridge Note ---
Date of Service January 05, 2019 History & Physical Bridge Note I have examined the patient, reviewed the History & Physical and in the interval since the performance of the History & Physical I have noted the following changes of clinical significance: no changes noted
[2019-01-05] MEDS ORDERED: BUPIVACAINE 0.5 % 5 MG/1 ML MPF 30ML VIAL ONE (07:01)
[2019-01-05] MEDS ORDERED: BUPIVACAINE LIPOSOME 1.3% 266 MG/20 ML VIAL ONE (07:02)
[2019-01-05] MEDS ORDERED: SODIUM CHLORIDE 0.9% PF 50 ML VIAL ONE (07:02)
[2019-01-05] MEDS ORDERED: SCOPOLAMINE 1.5 MG TDSY ONE (07:09)
[2019-01-05] MEDS ORDERED: CEFAZOLIN 2,000 MG/15 ML IV PUSH IV ONE (07:19)
[2019-01-05] MEDS ORDERED: DEXAMETHASONE SOD INJ 4 MG/ML VIAL ONE (07:27)
[2019-01-05] MEDS ORDERED: HYDROmorphone INJ 1 MG/ML SYRINGE IV PRN (07:34)
[2019-01-05] MEDS ORDERED: ePHEDrine sulfate 50 MG/ML AMP IV PRN (07:34)
[2019-01-05] MEDS ORDERED: PHENYLEPHRINE 100MCG/ML 5ML SYR IV PRN (07:34)
[2019-01-05] MEDS ORDERED: ONDANSETRON INJ 2 MG/ML 2 ML VIAL IV PRN ×2 (07:34→12:51)
[2019-01-05] MEDS ORDERED: ATROPINE SULFATE 0.1 MG/ML 10ML SYR IV PRN (07:34)
[2019-01-05] MEDS ORDERED: PROMETHAZINE HCL 12.5 MG in SODIUM CHLORIDE 0.9% 50 ML IV PRN (07:34)
[2019-01-05] MEDS ORDERED: LABETALOL HCL IV 5 MG/ML 20ML IV PRN (07:34)
[2019-01-05] MEDS ORDERED: fentaNYL citrate 100 MCG/2 ML VIAL IV PRN (07:34)
[2019-01-05] MEDS ORDERED: MEPERIDINE HCL 25 MG/ML CARP IV PRN (07:34)
[2019-01-05] MEDS ORDERED: SCOPOLAMINE 1.5 MG TDSY TD ONE (07:35)
[2019-01-05] MEDS ORDERED: CHECK SCOPOLAMINE PATCH PLACEMENT SCH (08:00)
--- NOTE | 2019-01-05 08:49 | Fluoroscopy Report ---
FL chest 1V frontal CLINICAL HISTORY: Bronchoscopy. COMPARISON STUDY: Chest 11/19/2018. FLUOROSCOPY TIME: 24 seconds. FINDINGS: Single fluoroscopic spot image of the left chest demonstrates a bronchoscope within the lef t lung. IMPRESSION: Fluoroscopy provided for bronchoscopy. Electronically signed by: Vivek Nogueira M.D. 01/05/2019 8:48 AM
--- NOTE | 2019-01-05 09:16 | Operative Report ---
DATE OF OPERATION: 01/05/2019 PROCEDURE: Navigational bronchoscopy with marking of lingular lesion using indocyanine green dye. SURGEON: Rico Calloway MD [employer]OP ROLLS OPERATOR: Arsalan Lopez, respiratory therapy. ANESTHESIA: General anesthesia with endotracheal intubation. INDICATION FOR PROCEDURE AND FINDINGS: Mr. Hill is a 58-year-old male who has a history of Sjogren's syndrome who has been on immunosuppressants, who was found to have a solid nodule in his lingula and a ground-glass opacity also. We had a long talk and we met several times in the office. We are going to proceed with a resection of this mass. I am concerned about the ground-glass opacity. We had a long talk about this. I would like to try a lingulectomy, however, I am afraid we are going to have positive margins with that. We will see how this plays out in the operating room, but I may end up just offering him a left upper lobectomy. We wanted to verónica this solid mass and send it for frozen section. DESCRIPTION OF PROCEDURE: On 01/05/2019, the patient was brought to the operating room. He was intubated. The fiberoptic scope was placed without difficulty after appropriate timeout had been called and antibiotics given. We were able to get out through the lingular branch to the area under fluoroscopic and computer guidance. Under fluoroscopic guidance, we then placed the needle and injected 1 mL of indocyanine green dye with some air. We then removed this. It should be noted that he did have some yellow sputum in his endobronchial tree, which I suctioned dry on both sides and sent for micro. His airways were not inflamed. He tolerated this well. We removed the scope and got him ready to switch him to a double lumen tube in preparation for his robotic procedure. I attest to the content of the Intraoperative Record and any orders documented therein. Any exception s are noted below.
[2019-01-05] MEDS ORDERED: INDOCYANINE GREEN 25 MG/10 ML INJ ONE (09:22)
[2019-01-05] MEDS ORDERED: SURGICEL ABSORB HEMOSTAT 2IN X 14IN TOP ONE (09:53)
[2019-01-05] MEDS ORDERED: GLYCOPYRROLATE 0.2 MG/ML VIAL ONE (10:50)
[2019-01-05] MEDS ORDERED: NEOSTIGMINE METHYLSULFATE 5 MG/5 ML SYR ONE (10:50)
--- NOTE | 2019-01-05 11:05 | Post Operative Brief Note ---
Immediate Post Op Note v1 Date of Surgery January 05, 2019 Pre & Post Diagnosis Operation Date: 01/05/19 07:30 Pre-Op Diagnosis: Left Lingular Mass Post-Op Diagnosis: Benign lingular masses X 2 Procedure Operation Date: 01/05/19 07:30 Actual Procedures p Navigational Bronchoscopy with ICG Marking; - Rico Calloway MD, FACS s Robotic Left Video-Assisted Thoracoscopy with Lingulectomy(Left), mediastinal lymphadenectomy - Rico Calloway MD, FACS Surgeon Rico Calloway MD, FACS Patient Financial Counselor Tommy PUENTES Estimated Blood Loss 50 Findings Consistent with Post-Op Diagnosis Drains Chest Tube and Sánchez Catheter
[2019-01-05] MEDS ORDERED: METOCLOPRAMIDE HCL INJ 5 MG/ML 2 ML VIAL IV ONE (11:30)
--- NOTE | 2019-01-05 12:03 | XRay Report ---
XR chest 1V portable CLINICAL HISTORY: Postop lung biopsy COMPARISON STUDY: 11/19/2018 FINDINGS: The cardiac and mediastinal contours remain stable. There is no focal pulmonary consolidati on. A left-sided chest tube is visualized with its tip projected over the apex. No pneumothorax is vi sualized. There is a linear subsegmental atelectatic change in the left superhilar region.[ IMPRESSION: 1. No evidence of pneumothorax status post lung biopsy. A left-sided chest tube is visualized. Electronically signed by: Pipo Thompson M.D. 01/05/2019 12:01 PM
--- NOTE | 2019-01-05 12:20 | Anesthesiology Progress Note ---
Date of Service January 05, 2019 Anesthesia Post Procedure Vital Signs Vital Signs: Temp Pulse Pulse Resp BP Pulse Ox 01/05/19 12:10 36.0 C L 87 16 157/97 H 95 01/05/19 12:00 93 H 13 161/97 H 97 01/05/19 11:50 99 H 15 155/97 H 99 01/05/19 11:40 92 H 15 160/104 H 97 01/05/19 11:30 88 14 143/97 H 96 01/05/19 11:23 36.1 C L 102 H 18 140/98 96 01/05/19 06:38 36.8 C 71 20 161/96 H 98 Notes Mental Status: alert / awake / arousable Patient Amnestic to Procedure: Yes Nausea / Vomiting: adequately controlled Pain: adequately controlled Airway Patency, RR, SpO2: stable & adequate BP & HR: stable & adequate Hydration State: stable & adequate Anesthetic Complications: no major complications apparent and Pt Satisfied with anesthetic care
[2019-01-05] MEDS ORDERED: MoRPHine SULFATE 2 MG/ML CARP IV PRN (12:51)
[2019-01-05] MEDS ORDERED: predniSONE 20 MG TAB PO PRN (12:51)
[2019-01-05] MEDS: ACETAMINOPHEN 1,000 MG/100 ML VIAL IV SCH ×2 (13:45→21:39)
[2019-01-05] MEDS: KETOROLAC TROMETHAMINE 15 MG/ML VIAL IV PRN (15:26)
[2019-01-05] MEDS: D5W AND 1/2NSS 1,000 ML IV SCH (17:19)
[2019-01-05] MEDS: METOCLOPRAMIDE HCL INJ 5 MG/ML 2 ML VIAL IV SCH (17:19)
[2019-01-05] MEDS: OXYCODONE HCL IR 5 MG TAB (IMMEDIATE RELEASE) PO PRN (18:46)
[2019-01-05] MEDS: DOCUSATE SODIUM 100 MG CAP PO SCH (21:40)
--- NOTE | 2019-01-06 00:41 | Operative Report ---
DATE OF OPERATION: 01/05/2019 PREOPERATIVE DIAGNOSIS: Slowly growing mass in his lingula. POSTOPERATIVE DIAGNOSIS: Slowly growing mass in his lingula. PROCEDURE: 1. Wedge resection after localization using indocyanine green dye and fluorescence with the da Adele robot. 2. Mediastinal lymphadenectomy. ANESTHESIA: General anesthesia and endotracheal intubation using double lumen tube. PROCEDURE AND FINDINGS Tao Hill is a 58-year-old male that we have seen multiple times. The patient has a mass in his lingula which has been growing. It is very slow and has been present for a long period of time, but we did not get a diagnosis on 2 separate navigational bronchoscopies. After a long talk, we elected to proceed with resection of this mass. Of particular importance is the fact that the patient has a ground-glass opacity which is faint but definitely there in the lingula. He also had a mass peripherally. After had a long talk, we elected to proceed with a resection of this with a possible lingulectomy or a lobectomy. A lingulectomy would not have removed all of this mass. I brought the patient to the operating room and after marking him with indocyanine green dye and an electromagnetic navigational bronchoscopy I went in and easily found the verónica. We wedged this out and while waiting for the biopsy results we performed a complete lymphadenectomy and biopsied the level 5, 6, 7, 8, 9, 10, 11 and 12 lymph nodes. He tolerated it well. Frozen section came back as 2 separate benign masses. One was interesting in that it had calcifications with osseous formation. The patient had incomplete fissures. I deliberated about doing a lingulectomy and elected not to as he had incomplete fissures and I felt this 58-year-old, who has never smoked, has a very low chance of this being a carcinoma. It did not light up on the PET. For this reason, I elected to forego this and we closed. We did use an Exparel block. He had no air leak and tolerated it quite well with essentially no blood loss. PROCEDURE: The patient was brought to operating room and laid in supine position. General anesthesia was induced and endotracheal intubation performed with a double lumen tube after he had undergone an electromagnetic navigational bronchoscopy with marking of this mass with indocyanine green dye. This was done to a single lumen tube and this was switched over to exchange to a double lumen tube. The patient was then turned in the right lateral decubitus position. Left chest prepped and draped in usual sterile fashion. After appropriate antibiotics had been given and appropriate timeout called, I made 5 small incisions. A single 12 mm incision was made just anterior to the mid axillary line at about the eighth interspace. Upon placing the robotic 0-degree 8.5 scope, we could see that there were no adhesions essentially. An 8 mm port was placed anteriorly and posteriorly at about the same interspace and then we placed a 5 mm port closer to the spine. All these were done under thoracoscopic guidance. I attest to the content of the Intraoperative Record and any orders documented therein. Any exceptions are noted below. ISAMAR
--- NOTE | 2019-01-06 00:47 | Operative Report ---
DATE OF OPERATION: 01/05/2019 ADDENDUM We then placed an assistance port above the diaphragm anteriorly. The robot was then docked. We had excellent visualization. It should be noted that before making any incision, we had mixed together an Exparel solution, which included 266 mg of Exparel and 20 mL of solution with 30 mL of 0.5% Marcaine and 250 mL of normal saline. These were used to inject each of the port sites before we placed the ports. Upon entering the chest, we then used this to perform an intercostal block from the 2nd to the 11th rib under thoracoscopic guidance. The lingula was then grasped and we could see the area when we used the fluorescence quite easily. A generous wedge was done at this area and this was sent off for frozen section. While waiting for frozen section, we took down the inferior pulmonary ligament, biopsied level 9 node, came up and biopsied level 8 node. I then dissected down between the esophagus and the trachea and got a level 7 node. I also did a level 10 node posteriorly. Coming around the top of the hilum, I then dissected out the level 5 and 6 node as well as a 10 node anteriorly. We then came down and got a few different 11 and 12 nodes as we dissected out along the more inferior hilum. Frozen section came back. It is interesting, but no evidence of malignancy. I asked for frozen sections on several other lymph nodes and these were all negative also. While waiting for this, I did start to develop the fissure, but the patient had incomplete fissures and I was going through parenchyma with bleeding and the potential for air leaks. When all of this came back negative, I elected to stop here rather than proceed with a lingulectomy or a lobectomy. I simply don't feel we have enough evidence to warrant that. A 24-Sami chest tube was placed through the anterior most thoracoscopy port and directed towards the apex and held in place with heavy silk suture. The assistance port and a camera port were each large enough to warrant closing the muscle layers with 0 Vicryl in an interrupted fashion and 4-0 Monocryl used in running subcuticular fashion to approximate the wound edges of each of the incisions. There was really no air leak in the case. We lost less than 50 mL of blood. He was extubated in the room and had excellent pain control. He tolerated it quite well. I attest to the content of the Intraoperative Record and any orders documented therein. Any exceptions are noted below. MTDD
[2019-01-06] MEDS: METOCLOPRAMIDE HCL INJ 5 MG/ML 2 ML VIAL IV SCH (01:23)
[2019-01-06] MEDS: D5W AND 1/2NSS 1,000 ML IV SCH (03:20)
[2019-01-06] MEDS: KETOROLAC TROMETHAMINE 15 MG/ML VIAL IV PRN (03:25)
[2019-01-06] MEDS: ACETAMINOPHEN 1,000 MG/100 ML VIAL IV SCH (05:47)
[2019-01-06] MEDS: OXYCODONE HCL IR 5 MG TAB (IMMEDIATE RELEASE) PO PRN ×2 (07:53→13:52)
--- NOTE | 2019-01-06 07:56 | XRay Report ---
SINGLE VIEW CHEST CLINICAL HISTORY: Status post lung biopsy. FINDINGS: An AP, portable, upright chest radiograph is compared to study dated 01/05/2019. Correlation is made with chest CT dated 08/06/2018. The examination is degraded by portable technique and patien t rotation. The cardiomediastinal silhouette is unremarkable. Airspace opacities and trace pleural f luid are noted at the left lung base. The right lung appears clear. A chest tube is again seen at the left apex. No pneumothorax is seen. The bony thorax is grossly intact. IMPRESSION: 1. A chest tube at the left apex is unchanged in position. No pneumothorax is identified. 2. Airspace opacities are present at the left lung base and there is trace left pleural effusion. Electronically signed by: Daren Escoto M.D. 01/06/2019 7:55 AM
--- NOTE | 2019-01-06 08:12 | XRay Report ---
XR chest 1V portable HISTORY: Chest tube removal COMPARISON: Chest 01/06/2019. FINDINGS: Interval removal of the left-sided chest tube. There appears to be a tiny left apical pneum othorax with a pleural gap of 2 mm. Bibasilar interstitial thickening persists. The heart is normal i n size. The right lung is clear. No pleural effusions. Suture material within the left suprahilar loc ation consistent with postoperative change. IMPRESSION: Status post removal of the left-sided chest tube with a tiny left apical pneumothorax. Electronically signed by: Vivek Nogueira M.D. 01/06/2019 8:11 AM
[2019-01-06 08:26] LABS: Hematocrit (blood only) 34.8 % (42-52); Hemoglobin 11.6 g/dL (14.0-18.0); Mean Corpuscular Hgb Conc 33.3 g/dL (32-36); Mean Corpuscular Volume 91.6 fL (80-100); Mean Platelet Volume 8.8 fL (7.4-10.4); Platelet Count 207 K/uL (130-400); RDW Coefficient of Variation 13.6 % (11.5-14.5); RDW Standard Deviation 45.1 fL (36.4-46.3); White Blood Count 11.34 K/uL (4.8-10.8)
[2019-01-06 08:38] LABS: Partial Thromboplastin Time 27.3 Seconds (21.0-31.0); Prothrombin Time 10.6 Seconds (9.0-12.0)
[2019-01-06] MEDS: ACETAMINOPHEN 325 MG TAB PO SCH ×2 (08:44→13:51)
[2019-01-06] MEDS: DOCUSATE SODIUM 100 MG CAP PO SCH (08:44)
[2019-01-06 08:59] LABS: Creatinine Clr Calc Pharmacy 90.4 ml/min; Est GFR (African American) 101.3; Est GFR (Non-African American) 87.4
[2019-01-06] MEDS ORDERED: CHOLECALCIFEROL 1,000 UNITS TAB PO SCH (09:00)
[2019-01-06] MEDS ORDERED: ENOXAPARIN INJ 40 MG/0.4 ML SYR SQ SCH (09:00)
[2019-01-06] MEDS ORDERED: PANTOprazole 40 MG TAB PO SCH (09:00)
[2019-01-06] MEDS ORDERED: TURMERIC PO SCH (09:00)
[2019-01-06 09:29] VITALS: TEMP 98.2
[2019-01-06 13:10] VITALS: BP 127/87; PULSE 95; O2SAT 96
--- NOTE | 2019-01-07 06:19 | Discharge Summary ---
DISCHARGE DIAGNOSES: 1. Lingular lung masses x2. 2. History of Sjogren's syndrome. HOSPITAL COURSE: This is a 58-year-old relatively healthy male who has never smoked but does have a history of Sjogren syndrome, has been on immunosuppressants. The patient has had slowly growing masses in his lingula and this was a concern. We attempted 2 different navigational bronchoscopies over a couple of year and did not get any answer for this. After multiple discussions in the office and we elected to proceed with a resection. On 01/05/2019, I performed an electromagnetic navigational bronchoscopy and did marking with indocyanine green of this lesion. I then performed a robotic wedge resection and with the use of fluorescence I was able to see this mass that we had marked and I easily wedged it out. While waiting for the frozen section, I performed a complete mediastinal lymphadenectomy. The patient had incomplete fissures and when it came back as being all benign, I elected not to proceed with segmentectomy or a lobectomy as I felt we had very little proof that this was malignant. Patient did very well, did not have an air leak. We lost very little in the way of blood. He had excellent pain control. The following morning, we removed his chest tube. His x-ray looked quite good. He was discharged home. I will see him back next week to go over his final pathology.
== END 2019-01-06 14:13 | disposition home or self-care (01) | DRG 168 ==
LOC: ASU 06:01 → 3W 12:47